=== PATIENT | male | born 1990 | race Caucasian/White ===

== ENCOUNTER 2025-07-18 23:00 | Emergency (ER) | payer SELFPAY ==
[~2025-07-18] VITALS: Ht 180.3 cm; Wt 116.0 kg
[2025-07-18 23:12] VITALS: O2SAT 98
[2025-07-18] MEDS ORDERED: BO1 TP (23:28)
[2025-07-18] MEDS ORDERED: IBUP-1455 MT (23:28)
[2025-07-18] MEDS: ACETAMINOPHEN 500MG TABLET PO ONE (23:49)
[2025-07-19 00:42] VITALS: BP 138/86; PULSE 100; RESP 18; TEMP 36.8; O2SAT 98
== END 2025-07-19 00:43 | disposition home or self-care (01) ==
LOC: ER 23:00
DX: S00.01XA Abrasion of scalp, initial encounter (principal); Z90.49 Acquired absence of other specified parts of digestive tract; Y08.02XA Assault by strike by baseball bat, initial encounter; Y93.89 Activity, other specified; Y92.89 Other specified places as the place of occurrence of the external cause; Y99.8 Other external cause status
CPT/HCPCS: 99284